=== PATIENT | female | born 1990 | race Caucasian/White ===

== ENCOUNTER 2022-09-08 21:52 | Emergency (ER) | payer BC, MEDICAID ==
[~2022-09-08] VITALS: Ht 157.5 cm; Wt 71.2 kg
[2022-09-08 22:09] VITALS: BP_SYST 127
--- NOTE | 2022-09-08 22:13 | NUR ---
Patient triaged and placed in waiting room. VSS and patient appears in no acute distress at this time. Accompanied by significant other, awaiting available bed, and MD notified of need for MSE.
--- NOTE | 2022-09-08 23:11 | NUR ---
ER Dr. ROBERTSON at bedside examining patient.
--- NOTE | 2022-09-09 00:15 | NUR ---
splint applied to L FOOT. PEDAL pulse noted. Capillary refill <3 seconds. Patient has ability to move non-splinted digits. Has sensation present to affected site. Skin color within normal limits. Applied for pain management control.
[2022-09-09] MEDS ORDERED: NAPR-1172 PO (00:23)
--- NOTE | 2022-09-09 00:30 | NUR ---
Patient given written and verbal discharge instructions and verbalizes understanding. ER MD DR. ROBERTSON discussed with patient the results and treatment provided. Patient in stable condition. ID arm band removed. Rx of NAPROXEN given. Patient educated on pain management and to follow up with PMD. Pain Scale 3/10. Opportunity for questions provided and answered. Medication side effect fact sheet provided.
== END 2022-09-09 00:30 | disposition home or self-care (01) ==
LOC: SED 21:52
DX: S92.255A Nondisplaced fracture of navicular [scaphoid] of left foot, initial encounter for closed fracture (principal); K21.9 Gastro-esophageal reflux disease without esophagitis; Z79.899 Other long term (current) drug therapy; V03.10XA Pedestrian on foot injured in collision with car, pick-up truck or van in traffic accident, initial encounter; Y93.89 Activity, other specified; Y92.89 Other specified places as the place of occurrence of the external cause; Y99.8 Other external cause status
CPT/HCPCS: 99283